=== PATIENT | female | born 1965 | race Caucasian/White ===

== ENCOUNTER 2020-07-16 08:43 | Outpatient (CLI) | payer OTHER, SELFPAY ==
[2020-07-16 09:28] LABS: Basophils # 0.1 10^3/uL (0.0-0.1); Basophils % 1.3 %; Eosinophils # 0.2 10^3/uL (0.0-0.8); Eosinophils % 4.8 %; Hematocrit 37.9 % (37.0-47.0); Hemoglobin 13.1 g/dL (11.5-15.3); Lymphocytes # 1.6 10^3/uL (0.8-4.8); Lymphocytes % 41.5 %; Mean Corpuscular HGB Conc 34.6 g/dL (30.0-36.0); Mean Corpuscular Hemoglobin 31.1 pg (28.0-34.0); Monocytes # 0.3 10^3/uL (0.2-0.9); Monocytes % 8.8 %; Neutrophils # 1.64 10^3/uL (1.8-7.7); Neutrophils % 43.6 %; Nucleated Red Blood Cells % 0 %; Platelet Count 182 10^3/cmm (130-400); Red Blood Count 4.21 10^6/uL (4.1-5.3); Red Cell Distribution Width 12.2 % (12.1-15.1); White Blood Count 3.8 10^3/uL (4.0-10.0)
[2020-07-16 09:53] LABS: Anion Gap 12.2 (5-19); Blood Urea Nitrogen 13 mg/dL (6-20); Calcium 8.9 mg/dL (8.5-10.5); Carbon Dioxide 27 mmol/L (22-29); Chloride 106 mmol/L (98-107); Chol HDL Ratio 3.32 mg/dL (0.0-4.40); Cholesterol 219 mg/dL (0-200); Free T4 Free Thyroxine 1.27 ng/dL (0.82-1.77); Glomerular Filtration Rate 103.8 mL/min (90-130); Glucose 88 mg/dL (65-115); HDL Cholesterol 66 mg/dL (60-100); LDL Cholesterol Calculated 120 mg/dL (50-129); LDL HDL Ratio 1.82 RATIO (0.00-3.22); Osmolality Calculated 292 mOsm/kg (285-295); Potassium 4.2 mmol/L (3.5-5.1); Sodium 141 mmol/L (136-145); T3 Free 2.9 PG/ML (2.0-4.4); Triglycerides 167 mg/dL (0-150)
[2020-07-16 10:34] LABS: 25 Hydroxy Vitamin D 53 ng/mL (30-100)
== END 2020-07-16 08:44 | disposition home or self-care (01) ==
PROVIDERS: PCP Family Medicine; Visit Provider Specialist
DX: Z13.220 Encounter for screening for lipoid disorders (principal); Z13.6 Encounter for screening for cardiovascular disorders; Z12.31 Encounter for screening mammogram for malignant neoplasm of breast; Z01.419 Encounter for gynecological examination (general) (routine) without abnormal findings
CPT/HCPCS: 36415; 80048; 80061; 82306; 84439; 84443; 84481; 85025

== ENCOUNTER 2020-09-10 08:43 | Outpatient (CLI) | payer OTHER, SELFPAY ==
--- NOTE | 2020-09-10 08:49 | MM_ITS ---
WS: [id number] Bilateral screening digital mammogram, 09/10/2020 Clinical Data: SCREENING, the patient had a recent code shot and has a small palpable nodule posterio r to the right areola. Comparison: 06/09/2018, 11/24/2016, 11/20/2015, 11/14/2014, 03/02/2013. Findings: The breast parenchymal pattern shows fibroglandular tissue No spiculated masses or clustered calcific ations are seen. There are no secondary signs of carcinoma. There is a marker placed posterior to the right areola but no abnormal tissue is seen. There are small lymph nodes in the right axilla unchang ed. MM/[id number] Impression: 1. Small palpable nodule posterior to the right areola. 2. Recommend right breast ultrasound. BIRADS: 0-Incomplete: Need additional imaging evaluation FOLLOW UP: See Report The CAD box car checker was used.
== END 2020-09-10 08:44 | disposition home or self-care (01) ==
LOC: RADSHAW 08:47
PROVIDERS: PCP Family Medicine; Visit Provider Specialist
DX: Z12.31 Encounter for screening mammogram for malignant neoplasm of breast (principal)
CPT/HCPCS: 77067

== ENCOUNTER 2020-09-19 08:33 | Outpatient (CLI) | payer OTHER, SELFPAY ==
--- NOTE | 2020-09-19 08:44 | US_ITS ---
WS: [id number] Right breast ultrasound, 09/19/2020 Clinical Data: SMALL PALPABLE NODULE NEAR RT AREOLA Comparison: Mammogram, 09/10/2020. Findings: The right breast at the areola demonstrated no cysts or masses. There were mammary ducts. Normal ricky st tissue was seen. US/US breast RT limited* [id number] Impression: 1. Normal right breast ultrasound. 2. Return to annual screening mammograms. BIRADS: 2-Benign FOLLOW UP: 1 Year Follow-up
== END 2020-09-19 08:34 | disposition home or self-care (01) ==
PROVIDERS: PCP Family Medicine; Visit Provider Orthopaedic Surgery
DX: N63.41 Unspecified lump in right breast, subareolar (principal)
CPT/HCPCS: 76642

== ENCOUNTER 2020-09-19 08:45 | Outpatient (CLI) | payer OTHER, SELFPAY | END 2020-09-19 08:46 | disposition home or self-care (01) | LOC: RAD 06-26 12:27 | PROVIDERS: PCP Family Medicine; Visit Provider Specialist | DX: Z20.822 Contact with and (suspected) exposure to COVID-19 (principal) | CPT/HCPCS: 87635 ==

== ENCOUNTER 2020-09-24 09:37 | Day surgery (SDC) | payer OTHER, SELFPAY ==
[2020-09-21 12:54] VITALS: BMI 24.9
--- NOTE | 2020-09-24 09:19 | W.PM.OPSFHP ---
Same Day Surgery H&P Indication for Procedure/HPI DATE OF PROCEDURE: September 24, 2020 CHIEF COMPLAINT/INDICATIONFOR SURGICAL PROCEDURE: Screening average risk PREOP DIAGNOSIS: Screening average risk PLANNED PROCEDRUE: Operation Date: 09/24/20 11:00 Proposed Procedures p Colonoscopy G0121 Z12.11(Not Applicable) - Zac Jha MD Medications/Allergies* Home Medications Medication Instructions Recorded Confirmed Type apple cider vinegar 300 mg tablet 300 mg PO DAILY 09/21/20 09/21/20 History calcium carbonate 600 mg calcium 600 mg PO DAILY 09/21/20 09/21/20 History (1,500 mg) tablet cholecalciferol (vitamin D3) 250 250 mcg PO DAILY 09/21/20 09/21/20 History mcg (10,000 unit) capsule lactobacillus combination no.4 3 3,000 mmu cells PO DAILY 09/21/20 09/21/20 History billion cell capsule multivitamin 1 tab PO DAILY 09/21/20 09/21/20 History omega-3 fatty acids 1,000 mg 1,000 mg PO DAILY 09/21/20 09/21/20 History capsule sennosides 8.6 mg capsule 8.6 mg PO DAILY PRN 09/21/20 09/21/20 History zinc 50 mg tablet 50 mg PO DAILY 09/21/20 09/21/20 History Allergies/Adverse Reactions Allergy/AdvReac Type Severity Reaction Status Date / Time Penicillins Allergy parents Verified 09/21/20 12:50 both allergic, never personally took it Pertinent Exam Findings alert, oriented x 3, clear to auscultation bilaterally, regular rate & rhythm, operative site marked and procedure specific exam findings Recommendations Surgery/Procedure today Coding Level of Care Code Acute Major Account Representative for Joelle Bess
--- NOTE | 2020-09-24 09:52 | P.ANESASSM_ITS ---
Pre-Anesthetic Assessment Pre-Anesthetic Assessment: Height/Weight: Height 1.73 m Weight 74.389 kg Preop Diagnosis: Screening average risk Proposed Procedure: Operation Date: 09/24/20 11:00 Proposed Procedures p Colonoscopy G0121 Z12.11(Not Applicable) - Zac Jha MD Familial anesthetic complications: None Was Beta Joann taken within 24 hours: N/A Was Clonidine taken within 24 hours: N/A Last intake: > 8 hrs Social: Social History: No alcohol and No tobacco Exam: Pre-Anes Outpt Exam: alert, oriented x 3, clear to auscultation bilaterally and regular rate & rhythm Airway: Cervical ROM: WNL MP: 1 Dentition: Other (crowns) GI: GI: GERD (occassional) Anesthetic Plan: ASA status: 1 Anesthesia: MAC Risk of > 500 ml blood loss (7ml/kg in children): No Data Anesthesia Cardiac Studies: 2 No Data to Display
[2020-09-24 10:17] VITALS: BP 116/83; PULSE 67; RESP 16; TEMP 36.2; O2SAT 100
[2020-09-24] MEDS: sodium chloride 0.9% 1,000 ML 30 ML IV (10:29)
[2020-09-24 11:59] VITALS: BP 122/77; PULSE 87; RESP 16; TEMP 36.2; O2SAT 96
[2020-09-24 12:14] VITALS: BP 126/78; PULSE 82; RESP 16; O2SAT 97
--- NOTE | 2020-09-24 15:11 | ANE.PACU2 ---
Inpatient post-anesthesia follow up: Airway intact: Yes Vital signs: Temperature 97.1 F Pulse Rate 82 Respiratory Rate 16 Blood Pressure 126/78 Pulse Oximetry 97 Oxygen Delivery Me thod Room Air Oxygen Flow Rate Fraction of Inspir ed Oxygen Hydration adequate: Yes Nausea and vomiting: No Pain level: 2 Mental status: Baseline
== END 2020-09-24 12:53 | disposition home or self-care (01) ==
PROVIDERS: PCP Family Medicine; Visit Provider Internal Medicine
PROC: 0DJD8ZZ Inspection of Lower Intestinal Tract, Via Natural or Artificial Opening Endoscopic (ICD-10-PCS; CPT 45378; principal; 2020-09-24 11:00)
DX: Z12.11 Encounter for screening for malignant neoplasm of colon (principal); K63.89 Other specified diseases of intestine; K21.9 Gastro-esophageal reflux disease without esophagitis
CPT/HCPCS: 45378; 96360; 96361; J2704; J3490; J7030

== ENCOUNTER 2021-09-20 07:59 | Outpatient (CLI) | payer OTHER, SELFPAY ==
--- NOTE | 2021-09-20 08:17 | MM_ITS ---
WS: [id number] BILATERAL SCREENING DIGITAL TOMOSYNTHESIS MAMMOGRAM WITH CAD HISTORY: SCREENING COMPARISON: 09/10/2020, 06/09/2018 and 11/24/2016 Bilateral CC and MLO views with tomosynthesis and synthetic mammography submitted. Computer aided det ection analyzed. Breast composition: There are scattered areas of fibroglandular density. No suspicious masses, microc alcifications or architectural distortion. Stable lymph node towards the RIGHT axillary tail. MM/[place] [id number] IMPRESSION: BI-RADS: 2-Benign FOLLOW UP: 1 Year Follow-up
[2021-09-20 08:27] LABS: Basophils % 0.9 %; Eosinophils # 0.1 10^3/uL (0.0-0.8); Hemoglobin 12.7 g/dL (11.5-15.3); Lymphocytes # 1.4 10^3/uL (0.8-4.8); Mean Corpuscular HGB Conc 32.6 g/dL (30.0-36.0); Mean Corpuscular Hemoglobin 30.9 pg (28.0-34.0); Mean Corpuscular Volume 94.9 fl (81-99); Mean Platelet Volume 9.9 fL (7.4-10.4); Monocytes # 0.3 10^3/uL (0.2-0.9); Monocytes % 10.2 %; Neutrophils # 1.49 10^3/uL (1.8-7.7); Neutrophils % 44.9 %; Nucleated Red Blood Cells % 0 %; Platelet Count 196 10^3/cmm (130-400); Red Blood Count 4.11 10^6/uL (4.1-5.3); Red Cell Distribution Width 11.9 % (12.1-15.1); White Blood Count 3.3 10^3/uL (4.0-10.0)
[2021-09-20 08:57] LABS: Anion Gap 11.4 (5-19); Blood Urea Nitrogen 13 mg/dL (6-20); Calcium 9.3 mg/dL (8.5-10.5); Carbon Dioxide 28 mmol/L (22-29); Chloride 106 mmol/L (98-107); Chol HDL Ratio 3.62 mg/dL (0.0-4.40); Cholesterol 228 mg/dL (0-200); Free T4 Free Thyroxine 1.17 ng/dL (0.82-1.77); Glomerular Filtration Rate 86.6 mL/min (90-130); Glucose 97 mg/dL (65-115); HDL Cholesterol 63 mg/dL (60-100); LDL Cholesterol Calculated 139 mg/dL (50-129); LDL HDL Ratio 2.21 RATIO (0.00-3.22); Osmolality Calculated 292 mOsm/kg (285-295); Potassium 4.4 mmol/L (3.5-5.1); Sodium 141 mmol/L (136-145); T3 Free 2.9 PG/ML (2.0-4.4); Thyroid Stimulating Hormone 1.53 uIU/mL (0.27-4.20); Triglycerides 130 mg/dL (0-150)
[2021-09-20 09:48] LABS: 25 Hydroxy Vitamin D 65 ng/mL (30-100)
== END 2021-09-20 08:00 | disposition home or self-care (01) ==
LOC: RAD 07:59 → LAB 08:00
PROVIDERS: PCP Family Medicine; Visit Provider Specialist
DX: Z12.31 Encounter for screening mammogram for malignant neoplasm of breast (principal); Z13.220 Encounter for screening for lipoid disorders; Z13.6 Encounter for screening for cardiovascular disorders; Z13.29 Encounter for screening for other suspected endocrine disorder; Z13.0 Encounter for screening for diseases of the blood and blood-forming organs and certain disorders involving the immune mechanism
CPT/HCPCS: 36415; 77063; 77067; 80048; 80061; 82306; 84439; 84443; 84481; 85025

== ENCOUNTER → 2022-03-06 09:41 | Outpatient (BNVA) | payer OTHER, SELFPAY | PROVIDERS: PCP Family Medicine; Visit Provider Orthopaedic Surgery | DX: M19.90 Unspecified osteoarthritis, unspecified site (principal); M77.9 Enthesopathy, unspecified; Z79.899 Other long term (current) drug therapy | CPT/HCPCS: 80053; 85651; 86140; 86160; 86162; 86200; 86235; 86255; 86376; 86431 ==

== ENCOUNTER → 2022-07-23 12:30 | Outpatient (BNVA) | payer OTHER, SELFPAY | PROVIDERS: PCP Family Medicine; Visit Provider Orthopaedic Surgery | DX: Z00.00 Encounter for general adult medical examination without abnormal findings (principal); E78.00 Pure hypercholesterolemia, unspecified; R59.9 Enlarged lymph nodes, unspecified | CPT/HCPCS: 80048; 80061; 82306; 84439; 84443; 84481; 85025 ==